=== PATIENT | male | born 1950 | race Caucasian/White ===

== ENCOUNTER 2019-01-12 07:51 | Day surgery (SDC) | payer OTHER ==
[2019-01-10 08:40] VITALS: BMI 29.8
[2019-01-12 08:17] VITALS: TEMP 98.6
[2019-01-12 09:41] VITALS: BP 103/67; PULSE 51
--- NOTE | 2019-01-24 09:34 | PATH ---
Surgical Pathology Report Patient Name: DANICA LAZO [facility]. Rec. #: [id number] /Age/Gender: 1950 (Age: 68) / M Account: [id number] Location: [facility] Taken: 01/12/2019 Received: 01/12/2019 Reported: 01/24/2019 Physicians: Deon Alcantar M.D. Specimen(s) Received POLYP RIGHT COLON Clinical History Colon, polyp, diverticulosis Final Diagnosis RIGHT COLON, POLYP, BIOPSY: TUBULAR ADENOMA. Electronically Signed Dalila Kim M.D. Gross Description Received in formalin, labeled "polyp, right colon" is a ballard, irregular portion of soft tissue measuring 0.3 cm. in greatest dimension. The specimen is submitted in toto in one cassette. AE/01/13/2019 ebram/01/13/2019
== END 2019-01-12 09:40 | disposition home or self-care (01) ==
LOC: FASU-ENDO 07:51
PROVIDERS: ATTEND Internal Medicine Gastroenterology
PROC: 0DBK8ZX Excision of Ascending Colon, Via Natural or Artificial Opening Endoscopic, Diagnostic (ICD-10-PCS; principal; 2019-01-12 08:49)
DX: Z86.010 Personal history of colon polyps (principal); D12.2 Benign neoplasm of ascending colon; K57.30 Diverticulosis of large intestine without perforation or abscess without bleeding
CPT/HCPCS: 88305-TC

== ENCOUNTER 2023-10-26 07:38 | Day surgery (SDC) | payer OTHER ==
[2023-10-20 10:53] VITALS: BMI 31.1
[2023-10-26] MEDS ORDERED: LIDOCAINE HCL/PF 2% SDV 5ML VIAL ONE (07:44)
[2023-10-26] MEDS ORDERED: PROPOFOL 160 ML ONE (07:45)
[2023-10-26 08:28] VITALS: PULSE 59; RESP 16; TEMP 97.8
[2023-10-26 08:51] VITALS: BP 113/57
== END 2023-10-26 08:51 | disposition home or self-care (01) ==
LOC: FASU-ENDO 07:38
PROVIDERS: ATTEND Internal Medicine Gastroenterology
PROC: 0DJD8ZZ Inspection of Lower Intestinal Tract, Via Natural or Artificial Opening Endoscopic (ICD-10-PCS; principal; 2023-10-26 08:07)
DX: Z12.11 Encounter for screening for malignant neoplasm of colon (principal); K57.30 Diverticulosis of large intestine without perforation or abscess without bleeding; Z86.010 Personal history of colon polyps; Z83.719 Family history of colon polyps, unspecified